=== PATIENT | female | born 1950 | race Caucasian/White ===

== ENCOUNTER → 2016-12-24 | Outpatient (CLI) | payer OTHER ==
--- NOTE | 2016-12-24 16:10 | MAMMOGRAPHY REPORT ---
BILATERAL DIGITAL SCREENING MAMMOGRAM TOMOSYNTHESIS WITH CAD: 12/24/2016 CLINICAL HISTORY: Routine screening. Patient has no complaints. TECHNIQUE: Breast tomosynthesis in addition to standard 2D mammography was performed. Current study was also evaluated with a Computer Aided Detection (CAD) system. COMPARISON: Comparison is made to exams dated: 11/13/2015 mammogram, 11/27/2013 mammogram, 10/06/2012 ma mmogram, 12/02/2011 mammogram, 11/07/2010 mammogram, and 06/17/2009 mammogram - [facility] er. BREAST COMPOSITION: The tissue of both breasts is heterogeneously dense, which may obscure small mas ses. FINDINGS: No suspicious masses, calcifications, or areas of architectural distortion are noted in ei ther breast. There has been no significant interval change compared to prior exams. IMPRESSION: ACR BI-RADS CATEGORY 1: NEGATIVE There is no mammographic evidence of malignancy. A 1 year screening mammogram is recommended. The pa tient will receive written notification of the results. Approximately 10% of breast cancers are not detected with mammography. A negative mammographic report should not delay biopsy if a clinically suggestive mass is present. Katelin Gayle M.D. /:12/24/2016 15:21:34 Button Attaching Machine Operator: Isis MCNEILL(Claire)(Saida)(BD), [facility] letter sent: Normal 1/2 BI-RADS Code: ACR BI-RADS Category 1: Negative
== END | disposition home or self-care (01) ==
LOC: C.MAMM 13:50
DX: Z12.31 Encounter for screening mammogram for malignant neoplasm of breast (principal); M85.88 Other specified disorders of bone density and structure, other site; M85.851 Other specified disorders of bone density and structure, right thigh; M85.852 Other specified disorders of bone density and structure, left thigh

== ENCOUNTER → 2016-12-29 | Outpatient (CLI) | payer OTHER ==
--- NOTE | 2016-12-29 10:59 | DIAGNOSTIC IMAGING REPORT ---
THYROID ULTRASOUND HISTORY: HYPOTHYROIDISM COMPARISON: Thyroid ultrasound 10/16/2015. FINDINGS: Right lobe: 4.0 x 1.2 x 1.0 cm. Heterogeneous gland containing a slightly hyperechoic 8 x 5 mm nodule in the lower pole. This remains unchanged. Left lobe: 3.3 x 1.0 x 0.9 cm. Heterogeneous gland containing a few subtle slightly hyperechoic subcentimeter nodules with the largest measuring 5 mm. This remains unchanged. Isthmus: 1 mm in thickness. No nodules. IMPRESSION: No change in the heterogeneous thyroid gland containing a few subcentimeter nodules. These do not meet sonographic criteria for biopsy. Electronically signed by: Lew Snider M.D. 12/29/2016 10:58 AM Dictated Date/Time: 12/29/2016 10:54 AM
== END | disposition home or self-care (01) ==
LOC: C.ULTR 10:01
DX: E03.9 Hypothyroidism, unspecified (principal); E04.1 Nontoxic single thyroid nodule